=== PATIENT | male | born 1955 | race Two or more races ===

== ENCOUNTER 2022-03-16 14:54 | Outpatient (CLI) | payer OTHER | END 2022-03-16 15:11 | disposition home or self-care (01) | LOC: RAD 14:54 | PROVIDERS: ATTEND Orthopaedic Surgery | DX: M25.562 Pain in left knee (principal) ==

== ENCOUNTER 2022-03-30 10:49 | Outpatient (CLI) | payer OTHER | END 2022-03-30 10:52 | disposition home or self-care (01) | LOC: MRI 10:49 | PROVIDERS: ATTEND Orthopaedic Surgery | DX: M54.10 Radiculopathy, site unspecified (principal) | CPT/HCPCS: 72148 ==